=== PATIENT | male | born 1985 | race Caucasian/White ===

== ENCOUNTER 2021-07-03 18:27 | Emergency (ER) | payer OTHER, BC | END 2021-07-03 19:05 | disposition home or self-care (01) | LOC: NAV ERS 18:27 | DX: S01.112A Laceration without foreign body of left eyelid and periocular area, initial encounter (principal); K21.9 Gastro-esophageal reflux disease without esophagitis; G47.30 Sleep apnea, unspecified; W54.8XXA Other contact with dog, initial encounter | CPT/HCPCS: 12011 ==